=== PATIENT | male | born 1985 | race Caucasian/White ===

== ENCOUNTER 2021-04-22 15:07 | Emergency (ER) | payer BC, SELFPAY ==
[2021-04-22] MEDS ORDERED: Lorazepam 2 MG/ML VIAL ONE (17:37)
== END 2021-04-22 18:57 | disposition home or self-care (01) ==
LOC: CSHERS 15:07
DX: F10.20 Alcohol dependence, uncomplicated (principal); F17.220 Nicotine dependence, chewing tobacco, uncomplicated
CPT/HCPCS: 80307; 96374; J2060

== ENCOUNTER 2021-04-25 22:54 | Inpatient (IN) | payer OTHER, SELFPAY ==
[2021-04-25 23:46] LABS: ALT (SGPT) 72 U/L (8-55); AST (SGOT) 180 U/L (5-34); Acetaminophen Less than 6.0 mcg/mL (10.0-30.0); Albumin 3.9 g/dL (3.5-5.0); Alcohol Less than 10 mg/dL (Less than 10); Alkaline Phosphatase 77 U/L (40-110); Anion Gap 14 mmol/L (10-20); BUN (Urea Nitrogen) 12 mg/dL (8.9-20.6); Bilirubin, Total 2.6 mg/dL (0.2-1.2); Calc. Creatinine Clearance 0 mL/min (70-130); Calcium 9.7 mg/dL (7.8-10.44); Carbon Dioxide 25 mmol/L (22-29); Chloride 98 mmol/L (98-107); Globulin 3.9 g/dL (2.4-3.5); Glucose 92 mg/dL (70-105); Potassium 3.2 mmol/L (3.5-5.1); Protein, Total 7.8 g/dL (6.0-8.3); Salicylate Less than 8.0 mg/dL (15.0-30.0); Sodium 134 mmol/L (136-145)
[2021-04-25 23:48] LABS: #Basophils 0.1 10x3/uL (0.0-0.2); #Eosinphils 0.1 10x3/uL (0.0-0.5); #Monocytes 0.9 10x3/uL (0.0-1.1); #Neutrophils 3.8 10x3/uL (1.5-8.4); %Eosinophils 1.7 % (0.0-6.0); %Lymphocytes 18.4 % (18.0-47.0); %Neutrophils 63.7 % (40.0-75.0); Hemoglobin 11.4 g/dL (13.5-17.5); Mean Corpuscular HGB CONC 34.9 g/dL (32.0-36.0); Mean Corpuscular Hemoglobin 35.5 pg (27.0-33.0); Mean Corpuscular Volume 101.9 fl (81.2-95.1); Mean Platelet Volume 12.7 fl (7.4-10.4); Platelet Count 96 10x3/uL (150-450); RBC Distribution Width 11.8 % (11.5-14.5); Red Blood Cell (RBC) Count 3.21 10x6/uL (4.32-5.72); White Blood Cell (WBC) Count 5.9 10x3/uL (3.5-10.5)
[2021-04-26 00:17] LABS: SARS-CoV-2 NAA Rapid Test Not Detected (NotDetected)
[2021-04-26] MEDS ORDERED: Calcium Carbonate 500 MG ChewTAB PO PRN (00:29)
[2021-04-26] MEDS ORDERED: Senokot S 8.6-50 MG TAB PO PRN (00:29)
[2021-04-26] MEDS ORDERED: Ondansetron PF 4 MG/2 ML Vial IVP PRN (00:29)
[2021-04-26 00:57] LABS: Platelet Morphology Comment Appears Decreased; RBC Morphology Normal
[2021-04-26] MEDS ORDERED: Potassium Chloride 20 MEQ TAB PO SCH ×2 (02:00→05:30)
[2021-04-26] MEDS ORDERED: Sodium Chloride 0.9% 1,000 ML IV SCH (02:00)
[2021-04-26] MEDS: Lorazepam 2 MG/ML VIAL SLOW IVP SCH ×6 (02:13→21:07)
[2021-04-26] MEDS ORDERED: FLU VACC QS2021-22(6MOS UP)/PF 60 MCG/0.5 ML SYRINGE IM ONE (05:00)
[2021-04-26 05:12] LABS: ALT (SGPT) 62 U/L (8-55); AST (SGOT) 157 U/L (5-34); Albumin 3.7 g/dL (3.5-5.0); Alkaline Phosphatase 71 U/L (40-110); Anion Gap 12 mmol/L (10-20); BUN (Urea Nitrogen) 11 mg/dL (8.9-20.6); Bilirubin, Total 2.5 mg/dL (0.2-1.2); CK (CPK) 2235 U/L (30-200); Calc. Creatinine Clearance 193 mL/min (70-130); Calcium 9.2 mg/dL (7.8-10.44); Carbon Dioxide 26 mmol/L (22-29); Chloride 102 mmol/L (98-107); Globulin 3.5 g/dL (2.4-3.5); Glucose 89 mg/dL (70-105); Phosphorus 3.1 mg/dL (2.3-4.7); Potassium 3.1 mmol/L (3.5-5.1); Protein, Total 7.2 g/dL (6.0-8.3); Sodium 137 mmol/L (136-145)
[2021-04-26 05:19] LABS: #Basophils 0.1 10x3/uL (0.0-0.2); #Eosinphils 0.1 10x3/uL (0.0-0.5); #Monocytes 0.6 10x3/uL (0.0-1.1); #Neutrophils 2.7 10x3/uL (1.5-8.4); %Basophils 1.2 % (0.0-2.0); %Eosinophils 1.9 % (0.0-6.0); %Monocytes 14.6 % (0.0-10.0); %Neutrophils 62.1 % (40.0-75.0); Hemoglobin 10.9 g/dL (13.5-17.5); Mean Corpuscular HGB CONC 33.2 g/dL (32.0-36.0); Mean Corpuscular Volume 102.2 fl (81.2-95.1); Platelet Count 91 10x3/uL (150-450); Red Blood Cell (RBC) Count 3.21 10x6/uL (4.32-5.72); White Blood Cell (WBC) Count 4.3 10x3/uL (3.5-10.5)
[2021-04-26 05:22] LABS: Magnesium 0.9 mg/dL (1.6-2.6)
[2021-04-26 05:25] LABS: Amphetamine Not Detected (NotDetected); Barbiturates Screen Not Detected (NotDetected); Benzodiazepine Screen Detected (NotDetected); Cocaine Metabolite Screen Not Detected (NotDetected); Methadone Not Detected (NotDetected); Methamphetamine Not Detected (NotDetected); Opiate Screen Not Detected (NotDetected); Oxycodone Screen Not Detected (NotDetected); Phencyclidine (PCP) Not Detected (NotDetected); THC/Cannabinoid Screen Not Detected (NotDetected); Tricyclic Screen Not Detected (NotDetected)
[2021-04-26] MEDS ORDERED: Lactated Ringer's 1,000 ML IV SCH (05:30)
[2021-04-26] MEDS: Magnesium 2 GM/50 ML 2 GM in Premix Bag 1 BAG IVPB SCH ×2 (05:52→09:35)
[2021-04-26 06:10] LABS: Microcytosis SLIGHT = 6-15 cells (100X) (0-5/hpf); Platelet Morphology Comment Appears Decreased
[2021-04-26 06:16] LABS: INR-International Normal Ratio 1.1; PTT 25.4 sec (22.0-33.0); Prothrombin Time 12.6 sec (9.5-12.1)
[2021-04-26] MEDS: Multivitamins, Adult 10 ML, Folic Acid 1 MG in Dextrose 5 %-0.45 % NaCl 1,000 ML IV SCH (09:14)
[2021-04-26] MEDS: Famotidine/PF 20 mg/2ml Vial SLOW IVP SCH ×2 (09:15→21:07)
[2021-04-26] MEDS ORDERED: Magnesium Sulfate 3 GM in Sodium Chloride 0.9% 100 ML IVPB SCH (09:15)
[2021-04-26] MEDS: Thiamine HCl 200 MG/2 ML VIAL SLOW IVP SCH (09:16)
[2021-04-26] MEDS: Amlodipine 5 MG TAB PO SCH (09:16)
[2021-04-26] MEDS ORDERED: Magnesium 2 GM/50 ML 2 GM in Premix Bag 1 BAG IVPB SCH (09:30)
[2021-04-26] MEDS: Nicotine 21 MG PATCH TD SCH (09:35)
[2021-04-26] MEDS: Lorazepam 2 MG/ML VIAL SLOW IVP PRN (11:42)
[2021-04-26] MEDS ORDERED: Electrolyte Replacement Protocol 1 EACH FS PRN (16:40)
[2021-04-26] MEDS: Lactated Ringer's 1,000 ML IV SCH (18:00)
[2021-04-26] MEDS: Dexmedetomidine In 0.9 % NaCl 100 ML IVPB SCH (18:25)
[2021-04-27] MEDS: Lactated Ringer's 1,000 ML IV SCH (00:31)
[2021-04-27] MEDS ORDERED: hydrALAZINE 20 MG/ML VIAL SLOW IVP SCH (00:45)
[2021-04-27] MEDS: Lorazepam 2 MG/ML VIAL SLOW IVP SCH ×6 (01:57→21:53)
[2021-04-27] MEDS: Dexmedetomidine In 0.9 % NaCl 100 ML IVPB SCH ×3 (02:36→21:58)
[2021-04-27 04:18] LABS: Hemoglobin 12.5 g/dL (13.5-17.5); Mean Corpuscular HGB CONC 34.2 g/dL (32.0-36.0); Mean Corpuscular Hemoglobin 34.3 pg (27.0-33.0); Mean Corpuscular Volume 100.5 fl (81.2-95.1); RBC Distribution Width 12.2 % (11.5-14.5); Red Blood Cell (RBC) Count 3.64 10x6/uL (4.32-5.72); White Blood Cell (WBC) Count 7.7 10x3/uL (3.5-10.5)
[2021-04-27 04:28] LABS: Anion Gap 18 mmol/L (10-20); BUN (Urea Nitrogen) 8 mg/dL (8.9-20.6); CK (CPK) 1142 U/L (30-200); Calc. Creatinine Clearance 220 mL/min (70-130); Calcium 8.7 mg/dL (7.8-10.44); Carbon Dioxide 16 mmol/L (22-29); Chloride 106 mmol/L (98-107); Glucose 90 mg/dL (70-105); Magnesium 1.3 mg/dL (1.6-2.6); Sodium 136 mmol/L (136-145)
[2021-04-27] MEDS: Magnesium 2 GM/50 ML 2 GM in Premix Bag 1 BAG IVPB SCH ×2 (05:08→06:16)
[2021-04-27 06:28] LABS: Platelet Count 107 10x3/uL (150-450)
[2021-04-27 06:29] LABS: MDiff Complete? YES
[2021-04-27 06:36] LABS: Band 3 % (5-11); Eosinophils 1 % (0-10); Lymphocytes 10 % (21-51); Monocytes 17 % (0-10); Neutrophil 67 % (42-75)
[2021-04-27 06:37] LABS: RBC Morphology Normal
[2021-04-27 06:38] LABS: Platelet Morphology Comment Appears Decreased
[2021-04-27] MEDS: Nicotine 21 MG PATCH TD SCH (10:25)
[2021-04-27] MEDS: Famotidine/PF 20 mg/2ml Vial SLOW IVP SCH ×2 (10:25→10:27)
[2021-04-27] MEDS: Amlodipine 5 MG TAB PO SCH (10:28)
[2021-04-27] MEDS: Multivitamins, Adult 10 ML, Folic Acid 1 MG in Dextrose 5 %-0.45 % NaCl 1,000 ML IV SCH (10:53)
[2021-04-27] MEDS: ADMIXTURE FEE IV SCH (10:56)
[2021-04-27] MEDS: NACL IV SCH (10:56)
[2021-04-27] MEDS: SODIUM BICARBONATE IV SCH (10:56)
[2021-04-27] MEDS: DEXTROSE IV SCH (10:56)
[2021-04-27] MEDS: Thiamine HCl 200 MG/2 ML VIAL SLOW IVP SCH (11:17)
[2021-04-27] MEDS: Enoxaparin Sodium 40 MG/0.4 ML SYRINGE SC SCH (21:52)
[2021-04-28] MEDS: SODIUM BICARBONATE IV SCH ×2 (01:51→13:28)
[2021-04-28] MEDS: Lorazepam 2 MG/ML VIAL SLOW IVP SCH ×6 (01:51→21:38)
[2021-04-28] MEDS: ADMIXTURE FEE IV SCH ×2 (01:51→13:28)
[2021-04-28] MEDS: NACL IV SCH ×2 (01:51→13:28)
[2021-04-28] MEDS: DEXTROSE IV SCH ×2 (01:51→13:28)
[2021-04-28 04:25] LABS: #Basophils 0.1 10x3/uL (0.0-0.2); #Eosinphils 0.1 10x3/uL (0.0-0.5); #Monocytes 1.2 10x3/uL (0.0-1.1); #Neutrophils 3.9 10x3/uL (1.5-8.4); %Basophils 1.4 % (0.0-2.0); %Eosinophils 1.7 % (0.0-6.0); %Lymphocytes 16.2 % (18.0-47.0); %Monocytes 18.4 % (0.0-10.0); %Neutrophils 61.7 % (40.0-75.0); Hemoglobin 13.9 g/dL (13.5-17.5); Mean Corpuscular HGB CONC 31.9 g/dL (32.0-36.0); Mean Corpuscular Hemoglobin 34.8 pg (27.0-33.0); Mean Platelet Volume 12.7 fl (7.4-10.4); Platelet Count 131 10x3/uL (150-450); RBC Distribution Width 12.1 % (11.5-14.5); White Blood Cell (WBC) Count 6.4 10x3/uL (3.5-10.5)
[2021-04-28 04:34] LABS: Anion Gap 16 mmol/L (10-20); BUN (Urea Nitrogen) 8 mg/dL (8.9-20.6); CK (CPK) 492 U/L (30-200); Calc. Creatinine Clearance 206 mL/min (70-130); Carbon Dioxide 19 mmol/L (22-29); Chloride 102 mmol/L (98-107); Glucose 94 mg/dL (70-105); Magnesium 1.6 mg/dL (1.6-2.6); Potassium 3.7 mmol/L (3.5-5.1); Sodium 133 mmol/L (136-145)
[2021-04-28 04:35] LABS: AST (SGOT) 93 U/L (5-34); Albumin 3.7 g/dL (3.5-5.0); Alkaline Phosphatase 100 U/L (40-110); Bilirubin, Direct 1.3 mg/dL (0.1-0.3); Bilirubin, Total 2.6 mg/dL (0.2-1.2)
[2021-04-28 04:57] LABS: ALT (SGPT) 50 U/L (8-55); Protein, Total 7.8 g/dL (6.0-8.3)
[2021-04-28] MEDS ORDERED: Magnesium 2 GM/50 ML 2 GM in Premix Bag 1 BAG IVPB SCH (07:30)
[2021-04-28] MEDS: Famotidine/PF 20 mg/2ml Vial SLOW IVP SCH ×2 (07:59→21:38)
[2021-04-28] MEDS: Amlodipine 5 MG TAB PO SCH (08:15)
[2021-04-28] MEDS: Multivitamins, Adult 10 ML, Folic Acid 1 MG in Dextrose 5 %-0.45 % NaCl 1,000 ML IV SCH (08:18)
[2021-04-28] MEDS: Nicotine 21 MG PATCH TD SCH (08:19)
[2021-04-28] MEDS: Thiamine HCl 200 MG/2 ML VIAL SLOW IVP SCH (08:29)
[2021-04-28] MEDS: Enoxaparin Sodium 40 MG/0.4 ML SYRINGE SC SCH (21:38)
[2021-04-28] MEDS ORDERED: Cepastat Lozenges 1 LOZ PO PRN (21:50)
[2021-04-29] MEDS: Lorazepam 2 MG/ML VIAL SLOW IVP SCH ×6 (02:26→21:12)
[2021-04-29 05:13] LABS: Anion Gap 15 mmol/L (10-20); BUN (Urea Nitrogen) 6 mg/dL (8.9-20.6); Calc. Creatinine Clearance 226 mL/min (70-130); Calcium 8.9 mg/dL (7.8-10.44); Carbon Dioxide 21 mmol/L (22-29); Chloride 103 mmol/L (98-107); Glucose 99 mg/dL (70-105); Magnesium 1.5 mg/dL (1.6-2.6); Potassium 3.2 mmol/L (3.5-5.1); Sodium 136 mmol/L (136-145)
[2021-04-29 06:32] LABS: Mean Corpuscular HGB CONC 34.2 g/dL (32.0-36.0); Mean Corpuscular Hemoglobin 34.8 pg (27.0-33.0); Mean Corpuscular Volume 101.7 fl (81.2-95.1); Mean Platelet Volume 13.4 fl (7.4-10.4); Platelet Count 189 10x3/uL (150-450); RBC Distribution Width 11.9 % (11.5-14.5); Red Blood Cell (RBC) Count 3.45 10x6/uL (4.32-5.72); White Blood Cell (WBC) Count 6.8 10x3/uL (3.5-10.5)
[2021-04-29 06:39] LABS: MDiff Complete? YES
[2021-04-29 06:45] LABS: Band 5 % (5-11); Eosinophils 1 % (0-10); Lymphocytes 15 % (21-51); Monocytes 25 % (0-10); Neutrophil 53 % (42-75)
[2021-04-29 06:47] LABS: Large Platelets SLIGHT; RBC Morphology Normal
[2021-04-29 06:48] LABS: Platelet Morphology Comment Appears Adequate
[2021-04-29] MEDS ORDERED: Potassium Bicarbonate/Cit Ac 20 MEQ TAB PO SCH (08:00)
[2021-04-29] MEDS ORDERED: Magnesium 2 GM/50 ML 2 GM in Premix Bag 1 BAG IVPB SCH (08:00)
[2021-04-29] MEDS ORDERED: Potassium Chloride 20 MEQ TAB PO SCH ×2 (08:30→09:00)
[2021-04-29] MEDS: Famotidine/PF 20 mg/2ml Vial SLOW IVP SCH ×2 (09:00→21:12)
[2021-04-29] MEDS: Amlodipine 5 MG TAB PO SCH (09:00)
[2021-04-29] MEDS: Nicotine 21 MG PATCH TD SCH (09:01)
[2021-04-29 09:28] VITALS: BMI 35.4
[2021-04-29] MEDS: Lorazepam 2 MG/ML VIAL SLOW IVP PRN ×2 (12:32→22:38)
[2021-04-29 12:43] LABS: Potassium 3.7 mmol/L (3.5-5.1)
[2021-04-29] MEDS: ADMIXTURE FEE IV SCH ×2 (13:34)
[2021-04-29] MEDS: NACL IV SCH ×2 (13:34)
[2021-04-29] MEDS: DEXTROSE IV SCH ×2 (13:34)
[2021-04-29] MEDS: SODIUM BICARBONATE IV SCH ×2 (13:34)
[2021-04-29] MEDS: Enoxaparin Sodium 40 MG/0.4 ML SYRINGE SC SCH (21:12)
[2021-04-29] MEDS ORDERED: Diazepam 10 MG/2 ML SYRINGE IVP SCH (23:45)
[2021-04-30] MEDS: ADMIXTURE FEE IV SCH ×2 (02:23→14:40)
[2021-04-30] MEDS: DEXTROSE IV SCH ×2 (02:23→14:40)
[2021-04-30] MEDS: NACL IV SCH ×2 (02:23→14:40)
[2021-04-30] MEDS: SODIUM BICARBONATE IV SCH ×2 (02:23→14:40)
[2021-04-30] MEDS: Lorazepam 2 MG/ML VIAL SLOW IVP PRN (04:35)
[2021-04-30 04:44] LABS: Hemoglobin 12.3 g/dL (13.5-17.5); Mean Corpuscular HGB CONC 34.6 g/dL (32.0-36.0); Mean Corpuscular Hemoglobin 34.4 pg (27.0-33.0); Mean Corpuscular Volume 99.4 fl (81.2-95.1); Mean Platelet Volume 12.5 fl (7.4-10.4); Platelet Count 254 10x3/uL (150-450); RBC Distribution Width 11.9 % (11.5-14.5); Red Blood Cell (RBC) Count 3.58 10x6/uL (4.32-5.72); White Blood Cell (WBC) Count 8.5 10x3/uL (3.5-10.5)
[2021-04-30] MEDS ORDERED: Diazepam 10 MG/2 ML SYRINGE IVP SCH (04:45)
[2021-04-30 05:11] LABS: Anion Gap 12 mmol/L (10-20); BUN (Urea Nitrogen) 6 mg/dL (8.9-20.6); Calc. Creatinine Clearance 217 mL/min (70-130); Calcium 9.1 mg/dL (7.8-10.44); Carbon Dioxide 22 mmol/L (22-29); Chloride 104 mmol/L (98-107); Glucose 102 mg/dL (70-105); Magnesium 1.4 mg/dL (1.6-2.6); Potassium 3.4 mmol/L (3.5-5.1); Sodium 135 mmol/L (136-145)
[2021-04-30] MEDS: Lorazepam 2 MG/ML VIAL SLOW IVP SCH ×6 (05:19→21:33)
[2021-04-30] MEDS ORDERED: Potassium Bicarbonate/Cit Ac 20 MEQ TAB PO SCH (06:15)
[2021-04-30] MEDS ORDERED: Magnesium 2 GM/50 ML 2 GM in Premix Bag 1 BAG IVPB SCH (06:15)
[2021-04-30 06:34] LABS: MDiff Complete? YES
[2021-04-30 06:38] LABS: Band 1 % (5-11); Eosinophils 2 % (0-10); Lymphocytes 16 % (21-51); Monocytes 22 % (0-10); Neutrophil 58 % (42-75)
[2021-04-30 06:39] LABS: Platelet Morphology Comment Appears Adequate; RBC Morphology Normal
[2021-04-30] MEDS ORDERED: chlordiazePOXIDE HCl 5 MG CAP PO SCH (08:00)
[2021-04-30] MEDS ORDERED: Potassium Chloride 20 MEQ TAB PO SCH (08:00)
[2021-04-30] MEDS: Amlodipine 5 MG TAB PO SCH (09:11)
[2021-04-30] MEDS: Nicotine 21 MG PATCH TD SCH (09:11)
[2021-04-30] MEDS: Famotidine/PF 20 mg/2ml Vial SLOW IVP SCH ×2 (09:12→21:33)
[2021-04-30] MEDS: chlordiazePOXIDE HCl 5 MG CAP PO SCH ×3 (09:12→21:33)
[2021-04-30] MEDS: Enoxaparin Sodium 40 MG/0.4 ML SYRINGE SC SCH (21:32)
[2021-05-01] MEDS: SODIUM BICARBONATE IV SCH ×2 (00:56→09:17)
[2021-05-01] MEDS: DEXTROSE IV SCH ×2 (00:56→09:17)
[2021-05-01] MEDS: ADMIXTURE FEE IV SCH ×2 (00:56→09:17)
[2021-05-01] MEDS: NACL IV SCH ×2 (00:56→09:17)
[2021-05-01] MEDS: Lorazepam 2 MG/ML VIAL SLOW IVP SCH ×2 (02:14→06:13)
[2021-05-01] MEDS: chlordiazePOXIDE HCl 5 MG CAP PO SCH ×4 (03:38→20:26)
[2021-05-01 04:41] LABS: #Basophils 0.1 10x3/uL (0.0-0.2); #Eosinphils 0.3 10x3/uL (0.0-0.5); #Monocytes 1.5 10x3/uL (0.0-1.1); #Neutrophils 9.1 10x3/uL (1.5-8.4); %Basophils 0.8 % (0.0-2.0); %Eosinophils 2.6 % (0.0-6.0); %Lymphocytes 11.4 % (18.0-47.0); %Monocytes 11.8 % (0.0-10.0); %Neutrophils 72.8 % (40.0-75.0); Hemoglobin 12.6 g/dL (13.5-17.5); Mean Corpuscular HGB CONC 33.3 g/dL (32.0-36.0); Mean Corpuscular Hemoglobin 34.1 pg (27.0-33.0); Mean Corpuscular Volume 102.2 fl (81.2-95.1); Mean Platelet Volume 12.7 fl (7.4-10.4); Platelet Count 308 10x3/uL (150-450); RBC Distribution Width 12.1 % (11.5-14.5); White Blood Cell (WBC) Count 12.4 10x3/uL (3.5-10.5)
[2021-05-01 04:59] LABS: Magnesium 1.6 mg/dL (1.6-2.6)
[2021-05-01 05:01] LABS: Anion Gap 11 mmol/L (10-20); BUN (Urea Nitrogen) 7 mg/dL (8.9-20.6); CK (CPK) 113 U/L (30-200); Calc. Creatinine Clearance 214 mL/min (70-130); Calcium 9.1 mg/dL (7.8-10.44); Carbon Dioxide 25 mmol/L (22-29); Chloride 102 mmol/L (98-107); Glucose 107 mg/dL (70-105); Potassium 3.4 mmol/L (3.5-5.1); Sodium 135 mmol/L (136-145)
[2021-05-01] MEDS ORDERED: Potassium Bicarbonate/Cit Ac 20 MEQ TAB PO SCH (06:00)
[2021-05-01] MEDS ORDERED: Magnesium 2 GM/50 ML 2 GM in Premix Bag 1 BAG IVPB SCH (06:15)
[2021-05-01] MEDS: Famotidine/PF 20 mg/2ml Vial SLOW IVP SCH ×2 (08:44→20:25)
[2021-05-01] MEDS: Thiamine 100 MG TAB PO SCH (08:44)
[2021-05-01] MEDS: Folic Acid 1 MG TAB PO SCH (08:44)
[2021-05-01] MEDS: Amlodipine 5 MG TAB PO SCH (08:45)
[2021-05-01] MEDS: Nicotine 21 MG PATCH TD SCH (09:17)
[2021-05-01] MEDS ORDERED: predniSONE 20 MG TAB PO SCH (12:15)
[2021-05-01] MEDS: Enoxaparin Sodium 40 MG/0.4 ML SYRINGE SC SCH (20:25)
[2021-05-02] MEDS: chlordiazePOXIDE HCl 5 MG CAP PO SCH ×2 (03:36→07:41)
[2021-05-02 04:33] LABS: #Basophils 0.1 10x3/uL (0.0-0.2); #Monocytes 0.6 10x3/uL (0.0-1.1); #Neutrophils 11.3 10x3/uL (1.5-8.4); %Basophils 0.5 % (0.0-2.0); %Eosinophils 0.1 % (0.0-6.0); %Lymphocytes 7.8 % (18.0-47.0); %Monocytes 4.4 % (0.0-10.0); %Neutrophils 86.6 % (40.0-75.0); Hemoglobin 12.8 g/dL (13.5-17.5); Mean Corpuscular Volume 103.2 fl (81.2-95.1); Mean Platelet Volume 12.5 fl (7.4-10.4); Platelet Count 353 10x3/uL (150-450); RBC Distribution Width 11.8 % (11.5-14.5); Red Blood Cell (RBC) Count 3.76 10x6/uL (4.32-5.72); White Blood Cell (WBC) Count 13.1 10x3/uL (3.5-10.5)
[2021-05-02 04:45] LABS: Anion Gap 15 mmol/L (10-20); BUN (Urea Nitrogen) 7 mg/dL (8.9-20.6); Calc. Creatinine Clearance 217 mL/min (70-130); Calcium 9.6 mg/dL (7.8-10.44); Carbon Dioxide 21 mmol/L (22-29); Chloride 104 mmol/L (98-107); Glucose 115 mg/dL (70-105); Magnesium 1.8 mg/dL (1.6-2.6); Potassium 4.6 mmol/L (3.5-5.1); Sodium 135 mmol/L (136-145)
[2021-05-02] MEDS ORDERED: Magnesium 2 GM/50 ML 2 GM in Premix Bag 1 BAG IVPB SCH (05:45)
[2021-05-02] MEDS ORDERED: cloNIDine 0.1 MG TAB PO SCH (06:15)
[2021-05-02] MEDS: Thiamine 100 MG TAB PO SCH (07:38)
[2021-05-02] MEDS: Folic Acid 1 MG TAB PO SCH (07:39)
[2021-05-02] MEDS: Famotidine/PF 20 mg/2ml Vial SLOW IVP SCH ×2 (07:41→20:39)
[2021-05-02] MEDS: predniSONE 20 MG TAB PO SCH (07:41)
[2021-05-02] MEDS: Amlodipine 5 MG TAB PO SCH (07:41)
[2021-05-02] MEDS: Nicotine 21 MG PATCH TD SCH (07:52)
[2021-05-02] MEDS ORDERED: predniSONE 20 MG TAB PO SCH (08:00)
[2021-05-02] MEDS ORDERED: Hydrochlorothiazide 25 MG TAB PO SCH (09:00)
[2021-05-02] MEDS: Docusate 100 MG CAP PO SCH ×2 (10:53→20:41)
[2021-05-02] MEDS ORDERED: diphenhydrAMINE 25 MG CAP PO PRN (12:14)
[2021-05-02] MEDS ORDERED: Lorazepam 1 MG TAB PO PRN (14:54)
[2021-05-02] MEDS: Lorazepam 1 MG TAB PO SCH ×2 (16:43→20:40)
[2021-05-02] MEDS: Enoxaparin Sodium 40 MG/0.4 ML SYRINGE SC SCH (20:40)
[2021-05-03 05:00] LABS: Anion Gap 14 mmol/L (10-20); BUN (Urea Nitrogen) 11 mg/dL (8.9-20.6); Calc. Creatinine Clearance 208 mL/min (70-130); Calcium 9.5 mg/dL (7.8-10.44); Carbon Dioxide 25 mmol/L (22-29); Chloride 103 mmol/L (98-107); Glucose 95 mg/dL (70-105); Magnesium 1.7 mg/dL (1.6-2.6); Potassium 3.9 mmol/L (3.5-5.1); Sodium 138 mmol/L (136-145)
[2021-05-03 05:09] LABS: #Basophils 0.1 10x3/uL (0.0-0.2); #Eosinphils 0.1 10x3/uL (0.0-0.5); #Neutrophils 12.7 10x3/uL (1.5-8.4); %Basophils 0.6 % (0.0-2.0); %Eosinophils 0.9 % (0.0-6.0); %Lymphocytes 14.4 % (18.0-47.0); %Monocytes 6.2 % (0.0-10.0); %Neutrophils 77.4 % (40.0-75.0); Hemoglobin 12.9 g/dL (13.5-17.5); Mean Corpuscular HGB CONC 33.3 g/dL (32.0-36.0); Mean Corpuscular Hemoglobin 34.5 pg (27.0-33.0); Mean Corpuscular Volume 103.5 fl (81.2-95.1); Mean Platelet Volume 12.1 fl (7.4-10.4); Platelet Count 378 10x3/uL (150-450); RBC Distribution Width 12.3 % (11.5-14.5); Red Blood Cell (RBC) Count 3.74 10x6/uL (4.32-5.72); White Blood Cell (WBC) Count 16.4 10x3/uL (3.5-10.5)
[2021-05-03] MEDS ORDERED: Magnesium 2 GM/50 ML 2 GM in Premix Bag 1 BAG IVPB SCH (05:15)
[2021-05-03] MEDS ORDERED: Loratadine 10 MG TAB PO SCH (09:00)
[2021-05-03] MEDS ORDERED: Hydrochlorothiazide 25 MG TAB PO SCH (09:00)
[2021-05-03] MEDS: Lorazepam 1 MG TAB PO SCH ×2 (09:16→13:19)
[2021-05-03] MEDS: Famotidine/PF 20 mg/2ml Vial SLOW IVP SCH (09:16)
[2021-05-03] MEDS: Docusate 100 MG CAP PO SCH (09:16)
[2021-05-03] MEDS: predniSONE 20 MG TAB PO SCH (09:16)
[2021-05-03] MEDS: Thiamine 100 MG TAB PO SCH (09:17)
[2021-05-03] MEDS: Folic Acid 1 MG TAB PO SCH (09:17)
[2021-05-03] MEDS: Nicotine 21 MG PATCH TD SCH (09:52)
[2021-05-03 10:29] VITALS: TEMP 97.1
[2021-05-03 12:22] VITALS: BP 129/76
[2021-05-03 17:13] LABS: SARS-CoV-2 PCR by NAA Not Detected (NotDetected)
[2021-05-04] MEDS ORDERED: predniSONE 20 MG TAB PO SCH (08:00)
[2021-05-06] MEDS ORDERED: predniSONE 10 MG TAB PO SCH (08:00)
[2021-05-08] MEDS ORDERED: predniSONE 5 MG TAB PO SCH (08:00)
== END 2021-05-03 13:20 | disposition home health service (06) | DRG 897 ==
LOC: CSHERS 22:54 → UNDOADMIN 22:55 → CSHTELE 22:55 → CSHIMCU 04-26 14:53 → CSHTELE 04-29 03:51
PROVIDERS: ADMIT Student in an Organized Health Care Education/Training Program; ATTEND Internal Medicine
PROC: HZ2ZZZZ Detoxification Services for Substance Abuse Treatment (ICD-10-PCS; principal; 2021-05-01)
DX: F10.231 Alcohol dependence with withdrawal delirium (principal); M62.82 Rhabdomyolysis; E87.2 Acidosis; Z20.822 Contact with and (suspected) exposure to COVID-19; I10 Essential (primary) hypertension; E87.6 Hypokalemia; D53.9 Nutritional anemia, unspecified; D69.6 Thrombocytopenia, unspecified; R74.01 Elevation of levels of liver transaminase levels; E78.2 Mixed hyperlipidemia; K70.10 Alcoholic hepatitis without ascites; F17.210 Nicotine dependence, cigarettes, uncomplicated; G31.2 Degeneration of nervous system due to alcohol; M10.9 Gout, unspecified; Y90.0 Blood alcohol level of less than 20 mg/100 ml; E83.42 Hypomagnesemia; R45.1 Restlessness and agitation; E87.8 Other disorders of electrolyte and fluid balance, not elsewhere classified
CPT/HCPCS: 36415; 70450; 80048; 80053; 80076; 80306; 80307; 82550; 82607; 82746; 83735; 84100; 84550; 85025; 85610; 85730; 93005; 93010; 94760; 94762; 96374; J0360; J1650; J2060; J3360; J3411; J3475; J7042; J7050; J7120; J7512; S0028; U0002; U0003; U0005